=== PATIENT | female | born 1995 | race Asian ===

== ENCOUNTER → 2019-06-19 | Outpatient (CLI) | payer OTHER | LOC: M WHC 10:23 | PROVIDERS: ATTEND General Practice | DX: Z12.31 Encounter for screening mammogram for malignant neoplasm of breast (principal); Z80.3 Family history of malignant neoplasm of breast; Z53.9 Procedure and treatment not carried out, unspecified reason ==

== ENCOUNTER 2020-02-29 17:38 | Outpatient (CLI) | payer SELFPAY ==
[~2020-02-29] VITALS: Ht 154.9 cm; Wt 82.6 kg
[2020-02-29] MEDS ORDERED: PRENTAB9 PO (17:51)
[2020-02-29 18:00] VITALS: BP 133/76
--- NOTE | 2020-02-29 22:20 | IPNPDOC ---
Text Note Date of Service The patient was seen on 02/29/20. 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 LMP 07/25/2019 EDC 04/30/2020 at 31.3 weeks no vaginal bleeding no vaginal discharge. risk factors excessive weight gain. reviewed NST category 1 strip no contractions no decelerations moderate variability baseline normal. urine 1.020 pH 6 tr protein 50 glucose plan reviewed [facility] prom labor bleeding when to call provider . discharged undelivered appointment ft drum ob VS,Fishbone, I+O VS, [place], I+O Vital Signs Date Time Temp Pulse Resp B/P (MAP) Pulse Ox O2 Delivery O2 Flow Rate FiO2 02/29/20 18:00 98.3 110 133/76 (95) Ronald Miller MD Feb 29, 2020 22:19
== END 2020-02-29 18:58 | disposition home or self-care (01) ==
LOC: M LDO 17:38
PROVIDERS: ATTEND Obstetrics & Gynecology
DX: O36.8190 Decreased fetal movements, unspecified trimester, not applicable or unspecified (principal)
CPT/HCPCS: 59025; G0378; G0463

== ENCOUNTER 2020-05-07 14:35 | Inpatient (IN) | payer OTHER ==
[~2020-05-07] VITALS: Ht 154.9 cm; Wt 89.6 kg
[~2020-05-07 14:35] MED LIST: PRENTAB9 PO
[2020-05-07 15:10] VITALS: BP 128/72
--- NOTE | 2020-05-07 16:24 | HPEPDOC ---
Obstetrical History & Physical General Date of Admission May 07, 2020 at 14:35 History of Present Illness Ms. Zambrano is a 24yo at 41+0 with good 1T dating that presents for IOL for late term. She denied n/v/d, cp, sob, multani, visual changes, abd pain, f/c, vb, lof, decreased fm, regular painful contractions. Antepartum Course Pre- weight (lbs.): 144 Admission Weight (lbs.): 193 Change in Weight (lbs.): 49 Past Medical History Past Obstetrical History : Past Obstetrical History: [employer] SERVIC[employer] History: No pertinent history Past Medical History Surgical History: Denies/None Family History Significant Family History: No pertinent family hx Social History Marital Status: Family situation: Spouse/partner home Psychosocial History: No pertinent psych hx * Smoker: non-smoker Alcohol: Denies Drugs: denies Imunizations Tdap status: current Influenza Status: current Medications Scheduled No.137/Iron/Folic Acd ( Vitamin Tablet) 1 Each Tablet, 1 TAB PO DAILY Physical Examination Physical Examination GENERAL: Alert and oriented times three. BREAST: . ABDOMEN: Gravid and non-tender to touch. FETUS: Is vertex (VTX) by sterile vaginal examination (SVE), fetus is vertex (VTX) by ultrasound HEART RATE: Regular rate and rhythm. LUNGS: Clear to auscultation (CTA). EXTREMITIES: No edema. No clonus. Laboratory Data 24H LABS Laboratory Tests 2 05/07/20 14:48: Serology Scanned Report Hepatitis B Testing Urine Culture: No Growth Pertinent Laboratoy Data Blood Type: O+ RBC Antibody Screen: Negative HIV: Negative Hepatitis B: Negative Rapid Plasma Reagin: Nonreactive Rubella: Immune Varicella: Nonreactive Chlamydia/Gonorrhea: Negative Group B Streptococcus: Negative Quad Screen Test: Negative Cystic Fibrosis: Negative Glucose Tolerance Test: 104 Anatomy Ultrasound Placenta Location: Posterior Normal Anatomy: Yes Estimated Weight (grams): 3200 Steroid Therapy Steroid Therapy: No Vaginal Examination Dilation: 1cm Effacement: 50% Station: -3 Cervical Consistency: Firm Cervical Position: Posterior Presentation: Cephalic presentation (by US) Assessment Heart Rate (FHR): 140 Variability: Moderate Accelerations: Positive Decelerations: None Tocometer Contractions: Yes Frequency: irregular Multi-drug resistant Organism: No history of MDRO Assessment/Plan Assessment Ms. Zambrano is a 24yo at 41+0 with good 1T dating that presents for IOL for late term. CAT I tracing, reactive. Normal VS. SVE /-3, DLFB placed. APC 1. excessive weight gain 49# 2. allergy to shellfish but not iodine 3. COVID during , quarantine ended 02/04 5. lagging growth, previously meeting criteria for FGR by AC, most recent scan not meeting criteria but HC still at 3%ile on last scan at 37wks, seen by MFM who report no evidence of microcephaly and that variations in growth are likely a biologic variant 6. 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 Diet: regular until start of cytotec or pit then clears Group B Streptococcus (GBS) [negative]. Labs and intravenous (IV) per unit protocol. Counseled on Pitocin and induction of labor (IOL). Lactated Ringers (LR): prn Anticipate [normal spontaneous delivery ()]. C-S as appropriate. BIANKA OKLB DO May 07, 2020 16:24
[2020-05-07 16:42] LABS: HEMATOCRIT 39.1 % (36.0-47.0); HEMOGLOBIN 12.8 g/dl (12.0-15.5); MEAN CORPUSCULAR HEMOGLOBIN 28.9 pg (27.0-33.0); MEAN CORPUSCULAR HGB CONC 32.7 g/dl (32.0-36.5); MEAN CORPUSCULAR VOLUME 88.3 fl (80.0-96.0); PLATELET COUNT, AUTOMATED 305 10^3/uL (150-450); RED BLOOD COUNT 4.43 10^6/uL (4.00-5.40); WHITE BLOOD COUNT 13.2 10^3/uL (4.0-10.0)
[2020-05-07 16:49] VITALS: BP 117/64
[2020-05-07 17:59] VITALS: BP 127/66
[2020-05-07 18:49] VITALS: BP 135/67
--- NOTE | 2020-05-07 19:12 | IPNPDOC ---
Obstetrical Progress Note Date of Service May 07, 2020 Subjective STRIP NOTE. nursing reports no acute concerns. Objective Vital Signs Date Time Temp Pulse Resp B/P (MAP) Pulse Ox O2 Delivery O2 Flow Rate FiO2 05/07/20 18:49 92 16 135/67 (89) 05/07/20 17:59 98.6 05/07/20 16:49 97 Room Air Assessment Heart Rate (FHR): 130 Variability: Moderate Accelerations: Positive Heart Rate Tracing: Category I Tocometer Contractions: Yes Frequency: regular Assessment and Plan Additional Comments CAT I tracing, reactive. VS normal. Regular contractions with DLFB in place. Will reassess in 4-6h or sooner if clinically indicated. BIANKA KOLB DO May 07, 2020 19:12
[2020-05-07] MEDS ORDERED: miSOPROStol 25MCG 1/4 TABLET PO ONE (20:10)
[2020-05-07 20:43] VITALS: BP 104/57
[2020-05-07] MEDS ORDERED: BUTORPHANOL 2 MG/ML INJ (J0595) IV ONE (20:45)
[2020-05-07] MEDS ORDERED: PROMETHAZINE INJ 25 MG/ML VIAL (J2550) IV ONE (20:45)
--- NOTE | 2020-05-07 20:48 | IPNPDOC ---
Obstetrical Progress Note Date of Service May 07, 2020 Subjective Patient requesting pain medication. Objective Vital Signs Date Time Temp Pulse Resp B/P (MAP) Pulse Ox O2 Delivery O2 Flow Rate FiO2 05/07/20 18:49 92 16 135/67 (89) 05/07/20 17:59 98.6 05/07/20 16:49 97 Room Air Assessment Heart Rate (FHR): 135 Variability: Moderate Accelerations: Positive Decelerations: None Heart Rate Tracing: Category I Tocometer Contractions: Yes Frequency: irregular Assessment and Plan Additional Comments CAT I tracing, reactive. Irregular contractions, received cytotec 25mcg PO. Ordering stadol and phenergan for pain. VS normal. Will reassess in 4-6h or sooner if clinically indicated. BIANKA KOLB DO May 07, 2020 20:48
[2020-05-08] VITALS (48 sets, daily range): BP systolic 82–144; BP diastolic 43–82
[2020-05-08] MEDS ORDERED: miSOPROStol 25MCG 1/4 TABLET PV ONE (00:50)
[2020-05-08] MEDS ORDERED: miSOPROStol 25MCG 1/4 TABLET PO SCH (01:00)
[2020-05-08] MEDS ORDERED: BUTORPHANOL 2 MG/ML INJ (J0595) IV ONE (01:20)
[2020-05-08] MEDS ORDERED: miSOPROStol 25MCG 1/4 TABLET PO ONE (05:20)
[2020-05-08] MEDS ORDERED: OXYTOCIN DRIP 30 UNITS in IV 1 EA IV SCH ×2 (09:35→20:07)
--- NOTE | 2020-05-08 09:38 | IPNPDOC ---
Obstetrical Progress Note Date of Service May 08, 2020 Subjective 24 yo at 41w1d admitted for IOL for postdates . She has no complaints at this time and states that she feels intermittent cramps. She has supportive family at the bedside. Objective Vital Signs Date Time Temp Pulse Resp B/P (MAP) Pulse Ox O2 Delivery O2 Flow Rate FiO2 05/08/20 07:07 85 Manual Cuff/Auscultation 96 Room Air 05/08/20 07:05 97.8 20 Cook balloon removed intact Assessment Heart Rate (FHR): 145 Variability: Moderate Accelerations: Present Decelerations: None Tocometer Contractions: Yes Frequency: irregular, other (every 6-7 minutes) Sterile Vaginal Examination Dilation: 6 cm Effacement (%): 70% Station: -3 Cervical Consistency: Soft Cervical Position: Middle Postion/Presentation: Cephalic presentation Assessment and Plan Age: 24 : 1 Term: 0 Pre-term: 0 Abortions: 0 Livin EGA at Admission: 41 (+0) Weeks & Days 41w1d Status: Reassuring Group B Streptococcus: Negative Anticipate: Vaginal Delivery Additional Comments Will start pitocin at this time Coordinate epidural per patient request CLEMENTE HUI CNM May 08, 2020 09:38
[2020-05-08] MEDS: LR 1,000 ML IV SCH ×4 (09:47→20:40)
[2020-05-08] MEDS ORDERED: EPIDURAL/PCA KEYS XX PRN (12:05)
[2020-05-08] MEDS ORDERED: NALOXONE INJ 0.4MG/1ML VIAL (J2310 PER 1MG) IV PRN ×3 (12:05→22:10)
[2020-05-08] MEDS ORDERED: FENTANYL/ROPIVACAINE/NACL BAG 100 ML EPIDURAL SCH (12:05)
[2020-05-08] MEDS ORDERED: EPIDURAL COMMENT XX SCH (12:05)
[2020-05-08] MEDS ORDERED: ONDANSETRON 4MG/2ML VIAL IV PRN ×3 (12:05→22:10)
[2020-05-08] MEDS ORDERED: LACTATED RINGER'S 1000 ML IV PRN (12:05)
[2020-05-08] MEDS ORDERED: REFRIGERATOR IV KEYS XX PRN (12:05)
[2020-05-08] MEDS ORDERED: diphenhydrAMINE 50MG/ML VIAL (J1200) IV PRN ×2 (12:05→22:10)
--- NOTE | 2020-05-08 13:30 | IPNPDOC ---
Obstetrical Progress Note Date of Service May 08, 2020 Subjective 24 yo at 41w1d admitted for IOL for postdates . She is comfortable with her epidural and is resting comfortably. She has supportive family at the bedside. Objective Vital Signs Date Time Temp Pulse Resp B/P (MAP) Pulse Ox O2 Delivery O2 Flow Rate FiO2 05/08/20 12:40 90 20 97/52 (67) 05/08/20 12:27 99 Room Air 05/08/20 10:56 97.6 Pitocin at 6 mu/min AROM for thick meconium stained fluid Discussed placing IUPC and FSE with patient and spouse due to difficulty to change position and continue to monitor externally due to maternal habitus. They are agreeable to plan. IUPC and FSE placed without difficulty. Assessment Heart Rate (FHR): 135 Variability: Minimal Accelerations: Present Decelerations: Early Tocometer Contractions: Yes Frequency: other (every 4-5 minutes) Sterile Vaginal Examination Dilation: 6 cm Effacement (%): 70% Station: -3 Cervical Consistency: Soft Postion/Presentation: Cephalic presentation Assessment and Plan Age: 24 : 1 Term: 0 Pre-term: 0 Abortions: 0 Livin EGA at Admission: 41 (+0) Weeks & Days 41w1d Status: Reassuring Group B Streptococcus: Negative Anticipate: Vaginal Delivery CLEMENTE HUI CNM May 08, 2020 13:30
[2020-05-08] MEDS: ePHEDrine SULFATE 25 MG/5 ML(5MG/ML) SYRINGE IV PRN ×2 (13:45→13:49)
--- NOTE | 2020-05-08 16:22 | IPNPDOC ---
Text Note Date of Service The patient was seen on 05/08/20. NOTE I went to introduce myself to Beti and assess her labor progress. She's a 24 yo at 41+1 weeks gestation who was admitted yesterday for an IOL for late term . She received multiple doses of cytotec and had a sanchez bulb, which was removed at ~0930 this AM. She progressed on pitocin to 6cm dilated an underwent AROM at ~1315. She has an epidural in place. Beti reports feeling comfortable and has no pain. Chaperoned by RN Cervix: unchanged at /-2. FSE and IUPC in place. FHR tracing - Mostly Cat I with moderate variability, +accels, no decels. MVUs ~120-180 as measured by IUPC. No cervical change since at least 1315. Pitocin at 8 mU. Contractions regular. Will continue to titrate pitocin to adequacy. Will re examine in 2-4 hours or sooner as clinically indicated. All patient questions answered. Faheem VS,Zack, I+O VS, Zack, I+O Vital Signs Date Time Temp Pulse Resp B/P (MAP) Pulse Ox O2 Delivery O2 Flow Rate FiO2 05/08/20 15:56 112 100 Room Air 05/08/20 15:55 98.3 20 05/08/20 15:54 113/55 (74) I&O- Last 24 Hours up to 6 AM 05/08/20 05:59 Intake Total 1320 ml Balance 1320 ml RUY HOWELL DO May 08, 2020 16:22
[2020-05-08] MEDS ORDERED: ACETAMINOPHEN 500 MG TAB PO ONE (17:25)
[2020-05-08] MEDS: AMPICILLIN SOD 2 GM in D5W MINI-BAG PLUS 100 ML IV SCH ×2 (17:39→23:23)
--- NOTE | 2020-05-08 17:49 | IPNPDOC ---
Text Note Date of Service The patient was seen on 05/08/20. NOTE Notified that patient had a temp of 100.6, followed by 101 orally. 30 minutes later oral temperature was 100.7. There are periods of tachycardia on the tracing. Patient now diagnosed with presumed intraamniotic infection (chorioamnionitis). Will start gent 5mg/kg Q24H and 2gm Amp Q6H. Will also administer 1000mg PO tylenol. NICU notified. Faheem VS,Zack I+O VS, Zack I+O Vital Signs Date Time Temp Pulse Resp B/P (MAP) Pulse Ox O2 Delivery O2 Flow Rate FiO2 05/08/20 16:53 101.0 102 20 123/78 (93) 05/08/20 15:56 100 Room Air I&O- Last 24 Hours up to 6 AM 05/08/20 06:00 Intake Total 1320 ml Balance 1320 ml RUY HOWELL DO May 08, 2020 17:49
[2020-05-08] MEDS ORDERED: GENTAMICIN 450 MG in D5W 50 ML IV SCH (18:00)
[2020-05-08] MEDS ORDERED: LIDOCAINE 2% W/EPINEPHRINE 20ML VIAL **PRES FREE As Ordered ONE (18:54)
[2020-05-08] MEDS ORDERED: AZITHROMYCIN INJ 500 MG, VIAL MATE ADAPTER 1 EACH in NS 250 ML IV ONE (19:00)
[2020-05-08] MEDS ORDERED: BICITRA 30ML SOLN UDC PO ONE (19:00)
--- NOTE | 2020-05-08 19:04 | IPNPDOC ---
Text Note Date of Service The patient was seen on 05/08/20. NOTE There has been tachycardia for a little over an hour. Chaperoned by RN Cervix: unchanged at -2. Beti's cervix has been unchanged now for 6 hours, with intermittent adequate and inadequate MVUs while on pitocin. She has received gentamicin and ampicillin for an intra amniotic infection as well as tylenol. I recommended section for arrest of dilation and persistent Cat II tracing, remote from delivery. We discussed all risks of c sections to include, but not limited to, bleeding requiring blood transfusion, risk of infection, risk injury of injury to bowel, bladder, or other structures which could require additional surgery, risk of needing a hysterectomy as a lifesaving measure, risk of injury to baby, and even risk of and/or maternal . She verbalized understanding of these risks and elected to proceed. She understands her baby will spend time in the NICU due her intramniotic infection diagnosis. Consent forms signed. All patient and questions answered. Anesthesia and NICU notified. Will proceed to the OR urgently. Torres Mayen DO VS,Zack, I+O VS, Marianne, I+O Vital Signs Date Time Temp Pulse Resp B/P (MAP) Pulse Ox O2 Delivery O2 Flow Rate FiO2 05/08/20 18:25 100.2 112 20 111/53 (72) 97 Room Air I&O- Last 24 Hours up to 6 AM 05/08/20 06:00 Intake Total 1320 ml Balance 1320 ml TORRES MAYEN DO May 08, 2020 19:04
[2020-05-08] MEDS ORDERED: OXYTOCIN 30 UNITS IN 0.9% NaCl 500ML IV BAG (J2590) As Ordered ONE (19:08)
[2020-05-08] MEDS ORDERED: MORPHINE PRES-FREE INJ 10 MG/10 ML VIAL (J2274) As Ordered ONE (19:17)
[2020-05-08] MEDS ORDERED: dexameTHASONE 4 MG/ML 1ML VIAL (J1100 PER 1MG) As Ordered ONE (19:22)
[2020-05-08] MEDS ORDERED: ONDANSETRON 4MG/2ML VIAL As Ordered ONE (19:22)
[2020-05-08] MEDS ORDERED: KETOROLAC 60MG 2ML VIAL As Ordered ONE (19:29)
[2020-05-08] MEDS ORDERED: METHYLERGONOVINE MALEATE 0.2 MG/ML VIAL (J2210) IM STA (19:38)
[2020-05-08] MEDS ORDERED: PHENYLephrine 500MCG 5ML (100MCG/ML) SYRINGE As Ordered ONE (19:42)
[2020-05-08] MEDS ORDERED: OXYTOCIN INJ 10 UNITS/ML VIAL (J2590) As Ordered ONE (19:46)
[2020-05-08 19:57] LABS: CORD GAS ABE A -2.8; CORD GAS O2 SAT A 43.9 %; CORD GAS PCO2 A 55.5 mmHg; CORD GAS PH A 7.271 UNITS; CORD GAS PO2 A 21.5 mmHg; CORD GAS TCO2 A 26.7 MEQ/L
[2020-05-08 20:00] LABS: CORD GAS ABE V -2.6; CORD GAS O2 SAT V 79.6 %; CORD GAS PCO2 V 42.8 mmHg; CORD GAS PH V 7.349 UNITS; CORD GAS PO2 V 38.9 mmHg; CORD GAS SBC V 21.9 MEQ/L; CORD GAS TCO2 V 24.4 MEQ/L
[2020-05-08] MEDS ORDERED: SIMETHICONE 80MG CHEW TAB PO PRN (20:10)
[2020-05-08] MEDS ORDERED: MEASLES,MUMPS,RUBELLA VACCINE INJ (MMR-II) (90707) SC SCH (20:10)
[2020-05-08] MEDS ORDERED: RHOGAM 300 MCG (1500 IU) INJ (J2790) IM SCH (20:10)
[2020-05-08] MEDS ORDERED: PERCOCET 5MG/325MG TAB PO PRN ×2 (20:10→20:25)
[2020-05-08] MEDS ORDERED: METOCLOPRAMIDE INJ 10MG/2ML VIAL (J2765 PER 1) IV PRN ×3 (20:10→22:10)
[2020-05-08] MEDS ORDERED: ONDANSETRON 4 MG ORAL DISINTEGRATING TAB PO PRN (20:10)
[2020-05-08] MEDS ORDERED: fentaNYL 100 MCG/2 ML INJECTION (J3010) IV PRN (20:25)
[2020-05-08] MEDS ORDERED: LR 1,000 ML IV SCH (20:25)
[2020-05-08] MEDS: DOCUSATE SODIUM 100MG CAPSULE PO PRN (22:07)
[2020-05-08] MEDS: PERCOCET 5MG/325MG TAB PO PRN (22:07)
[2020-05-08] MEDS ORDERED: NALBUPHINE HCL 10 MG/ML AMP (J2300) IV PRN (22:10)
[2020-05-09] VITALS (8 sets, daily range): BP systolic 101–141; BP diastolic 49–75
[2020-05-09] MEDS: KETOROLAC 30 MG/ML 1ML VIAL IV SCH ×3 (01:58→14:26)
[2020-05-09] MEDS: LR 1,000 ML IV SCH (03:46)
[2020-05-09] MEDS: AMPICILLIN SOD 2 GM in D5W MINI-BAG PLUS 100 ML IV SCH ×4 (04:54→23:14)
[2020-05-09 07:31] LABS: HEMATOCRIT 30.5 % (36.0-47.0); MEAN CORPUSCULAR HEMOGLOBIN 29.4 pg (27.0-33.0); MEAN CORPUSCULAR HGB CONC 33.1 g/dl (32.0-36.5); MEAN CORPUSCULAR VOLUME 88.9 fl (80.0-96.0); PLATELET COUNT, AUTOMATED 235 10^3/uL (150-450); RED BLOOD COUNT 3.43 10^6/uL (4.00-5.40); WHITE BLOOD COUNT 18.2 10^3/uL (4.0-10.0)
--- NOTE | 2020-05-09 07:42 | IPNPDOC ---
Progress Note Date of Service: May 09, 2020 Progress Note Ms. Zambrano is a 24 yo G1 now P1 who is PPD#1 s/p uncomplicated PLTCS yesterday evening for arrest of dilation and persistent Cat II tracing. She is currently recovering on the scott. No acute events overnight. She continues to receive ampicillin and gentamicin. in the NICU for monitoring due to intrapartum intra amniotic infection. Beti reports feeling this morning and just has mild abdominal soreness. She is ambulating and tolerating a regular diet without issues. She denies any fevers/chills, n/v, or pain not controlled by current pain regimen. Vitals - VSS, afebrile, normotensive, non tachycardic General - sitting up in bed, AAOX3, pleasant and conversant, NAD Abdomen - Fundus firm at U-1. No fundal tenderness. Incision covered with optifoam dressing. Dry and intact with minimal strikethrough. Appropriate tenderness to palpation. Extremities - No edema - sanchez bag at bedside draining clear, yellow urine Labs: Pre op H/H ~ ---> pending post op H/H this AM Beti is doing well and is making an appropriate / postoperative recovery. Will encourage ambulation today, remove sanchez catheter, and monitor for DTV. Continue IV amp and gent for full 24 hours post delivery. Encourage IS use. Continue routine post op care. Anticipate DC home on Tuesday if baby meeting criteria as well. All patient questions answered. Faheem VS, I&O, 24H, Fishbone Vital Signs/I&O Vital Signs Date Time Temp Pulse Resp B/P (MAP) Pulse Ox O2 Delivery O2 Flow Rate FiO2 05/09/20 06:00 96.5 94 18 115/58 (77) 97 Room Air I&O- Last 24 Hours up to 6 AM 05/09/20 06:00 Intake Total 5595.3 ml Output Total 5375 ml Balance 220.3 ml Laboratory Data 24H LABS Laboratory Tests 2 05/08/20 19:36: Cord Arterial Blood pH 7.271, Cord Arterial Blood PCO2 55.5, Cord Arterial Blood PO2 21.5, Cord Arterial Blood HCO3 25.0, Cord Arterial Blood Total CO2 26.7, Cord Arterial Blood Base Excess -2.8, Cord Arterial Base Excess (Standard 21.0, Cord Arterial Bld Oxygen Saturation 43.9, Cord Venous Blood pH 7.349, Cord Venous Blood PCO2 42.8, Cord Venous Blood PO2 38.9, Cord Venous Blood HCO3 23.0, Cord Venous Blood Total CO2 24.4, Cord Venous Base Excess (Actual) -2.6, Cord Venous Base Excess (Standard) 21.9, Cord Venous Blood Oxygen Saturation 79.6 CBC/BMP RUY HOWELL DO May 09, 2020 07:42
[2020-05-09 07:43] LABS: HEMOGLOBIN 10.1 g/dl (12.0-15.5)
[2020-05-09] MEDS: PRENATAL VITAMINS CHEWABLE TABLET PO SCH (08:10)
[2020-05-09] MEDS: CLINDAMYCIN 900 MG in IV 1 EA IV SCH ×2 (11:18→22:00)
--- NOTE | 2020-05-09 13:12 | RO ---
OPERATIVE NOTE DATE OF OPERATION: 05/07/2020 PREOPERATIVE DIAGNOSIS: 1. Arrest of dilation. 2. Persistent Category II tracing remote from delivery. 3. Obesity. 4. Intra-amniotic infection. POSTOPERATIVE DIAGNOSIS: 1. Arrest of dilation. 2. Persistent Category II tracing remote from delivery. 3. Obesity. 4. Intra-amniotic infection. PROCEDURE: Primary low transverse section. SURGEON: Torres Mayen DO [employer] OFFICER: Chepe Vega MD, whose assistance with exposure, retraction, and visualization was essential to completion of the case. ANESTHESIA: Epidural. IV FLUIDS: 1 liter. EBL: 700 mL. URINE OUTPUT: 300 mL via Vela catheter. ANTIBIOTICS: The patient was receiving Gentamicin and Ampicillin for chorioamnionitis. Before case start she got 500 mg of Azithromycin as well. Clindamycin was added after the case. COMPLICATIONS: None. OPERATIVE FINDINGS: Viable female infant found and delivered in cephalic ROT presentation. Footling cord noted with delivery. Normal-appearing placenta, normal-appearing uterus and Fallopian tubes bilaterally. Apgars were 8 and 9. weight was 2988 gm or 6 pounds 9 ounces. Cord gasses were arterial 7.27 pH with a -2.8 base excess and venous was 7.34 pH with a base excess of -2.6. DESCRIPTION OF PROCEDURE: The risks, benefits, and alternatives of the procedure were reviewed with the patient and informed consent was obtained. The patient was taken to the operating room where epidural anesthesia was found to be adequate. She was then prepped and draped in the usual sterile fashion in the dorsal supine position with a leftward tilt. A surgical time-out was then performed and the patient's identity and the planned procedure were verified with the operative team. A Pfannenstiel incision was then made with a scalpel and carried through to the underlying layer of fascia. The fascia was incised in the midline, and the incision was extended laterally with Graham scissors. The superior aspect of the fascial incision was grasped with Joceline clamps, elevated, and the underlying rectus muscles were dissected off bluntly. Attention was then turned to the inferior aspect of this incision which in a similar fashion was grasped, tented up with Joceline clamps, and the rectus muscles were dissected off by blunt dissection and with Graham scissors. The rectus muscles were then at the midline. The peritoneum was identified, tented up, and entered digitally. The peritoneal incision was then extended horizontally and superiorly with good visualization of the bladder. A Mobius self-containing retractor was then introduced into the abdomen. The vesicouterine peritoneum was then identified and nicked with a scalpel. A bladder flap was then created digitally. Next, the lower uterine segment was incised in a transverse fashion with the scalpel. Meconium-stained fluid was noted upon entry into the uterus. The uterine incision was then extended manually in a superolateral fashion. The was found in cephalic presentation. The baby was then delivered without difficulty through the hysterotomy. The cord was then doubly clamped and cut. The infant was then handed off to the awaiting pediatricians. Cord gasses were obtained. The placenta was then removed spontaneously with gently traction on the cord. The uterus was then cleared of all clots and debris. The uterine incision was then repaired with 0 Monocryl suture in a running-locked fashion. A second layer of 0 Monocryl was then used to imbricate the hysterotomy in a vertical fashion. Inspection revealed excellent hemostasis. The pericolic gutters were then cleared of all clots and debris. Inspection of the hysterotomy again revealed hemostasis. The Mobius self-containing retractor was then removed from the abdomen. The hysterotomy was again inspected and was noted to be hemostatic. The patient's peritoneum was then reapproximated with 3-0 Vicryl suture in a running fashion. The fascia was then closed with 0 Vicryl suture in a running fashion. The subcutaneous fat was then closed with 3-0 Vicryl suture in a running fashion. The skin was then closed with 4-0 Monocryl suture in a subcuticular fashion. The incision was then dressed with an Optifoam dressing. At the completion of the case, a bimanual exam was performed and the uterus was initially boggy. Methergine, 0.2 mg IM, was then administered with improvement in uterine tone. There was then minimal vaginal bleeding. The patient tolerated the procedure well. Sponge, instrument, and needle counts were correct times three. The patient was taken to the recovery room in stable condition. GEORGES
[2020-05-09] MEDS ORDERED: GENTAMICIN 450 MG in D5W 100 ML IV SCH (18:00)
[2020-05-09] MEDS: DOCUSATE SODIUM 100MG CAPSULE PO PRN (22:28)
[2020-05-09] MEDS: PERCOCET 5MG/325MG TAB PO PRN (22:29)
[2020-05-09] MEDS: IBUPROFEN 800 MG TAB PO SCH (22:29)
[2020-05-10 02:00] VITALS: BP 118/55
[2020-05-10] MEDS: CLINDAMYCIN 900 MG in IV 1 EA IV SCH (02:15)
[2020-05-10] MEDS: PERCOCET 5MG/325MG TAB PO PRN ×2 (04:32→10:23)
[2020-05-10] MEDS: AMPICILLIN SOD 2 GM in D5W MINI-BAG PLUS 100 ML IV SCH (04:32)
[2020-05-10] MEDS: IBUPROFEN 800 MG TAB PO SCH (05:40)
[2020-05-10 06:00] VITALS: BP 105/55
[2020-05-10] MEDS ORDERED: DOK1CAP7 PO (06:44)
[2020-05-10] MEDS ORDERED: IBUP80TA PO (06:44)
[2020-05-10] MEDS ORDERED: PERCOCET PO (06:44)
[2020-05-10] MEDS: PRENATAL VITAMINS CHEWABLE TABLET PO SCH (08:27)
--- NOTE | 2020-05-10 11:17 | DSES ---
DISCHARGE SUMMARY DATE OF ADMISSION: 05/07/2020 DATE OF DISCHARGE: 05/10/2020 BRIEF HISTORY: A 24-year-old, 1, now para 1, admitted at 41 weeks for induction of labor. She had a primary section because of arrest of dilation and category II strip and chorioamnionitis, delivered a live female , weighing 6 pounds 9 ounces, 2988 grams, Apgars of 8 and 9 at one and five minutes respectively. Arterial pH 7.27, base excess -2.8. Venous pH 7.34, base excess -2.6. On her second day, we discussed phlebitis, cystitis, mastitis, endometritis, cellulitis, diet, exercise, pain management, perineal, breast and wound care. She has been afebrile throughout, has been on antibiotics for 24 hours, asymptomatic. Her admitting hemoglobin 12.8, hematocrit 39.1 and platelets 305,000. Discharge hemoglobin 10.1, hematocrit 30.5 and platelets 235,000. PHYSICAL EXAMINATION ON DISCHARGE: Blood pressure is 105/53, respirations 16, pulse 75, temperature 98.2. The rest of the examination is unremarkable. Normocephalic, atraumatic. Neck full range of motion. Pupils equal and reactive to light. Distal pulses are symmetric. No evidence of DVT, PE or superficial phlebitis. Chest is clear bilaterally to bases, no wheezes or rhonchi. No CVA tenderness. Abdomen is soft, four quadrant bowel sounds are noted. Incision is clean and dry. The Optifoam is clean and dry. No rashes, lesions or pruritis. No arthralgia or myalgia. No complaint of joint pain. No complaint of cough, wheeze, shortness of breath or dyspnea on exertion. No nausea, vomiting, diarrhea or constipation. No urgency or frequency. Presently , doing well. Passing gas. Voiding normally. Pain is under control. 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 She has a two week incision check with [facility], and six week checkup. All questions were answered, 20 minute discussion. Patient was discharged improved.
== END 2020-05-10 10:15 | disposition home or self-care (01) | DRG 771 ==
LOC: M LDI 14:35 → M OBS 05-08 22:05
PROVIDERS: ADMIT Obstetrics & Gynecology; ATTEND Obstetrics & Gynecology
PROC: 10D00Z1 Extraction of Products of Conception, Low, Open Approach (ICD-10-PCS; principal; 2020-05-07)
PROC: 3E0P7GC Introduction of Other Therapeutic Substance into Female Reproductive, Via Natural or Artificial Opening (ICD-10-PCS; 2020-05-07)
PROC: 10907ZC Drainage of Amniotic Fluid, Therapeutic from Products of Conception, Via Natural or Artificial Opening (ICD-10-PCS; 2020-05-07)
DX: O48.0 Post-term pregnancy (principal); O41.1230 Chorioamnionitis, third trimester, not applicable or unspecified; Z37.0 Single live birth; Z3A.41 41 weeks gestation of pregnancy; O99.214 Obesity complicating childbirth; E66.9 Obesity, unspecified; O77.0 Labor and delivery complicated by meconium in amniotic fluid; O62.0 Primary inadequate contractions; O76 Abnormality in fetal heart rate and rhythm complicating labor and delivery; O69.82X0 Labor and delivery complicated by other cord entanglement, without compression, not applicable or unspecified; Z86.16 Personal history of COVID-19

== ENCOUNTER → 2021-01-04 | Outpatient (REF) | payer OTHER ==
[~2021-01-04] MED LIST changes: +DOK1CAP4 PO; +IBUP80TA PO; +PERCOCET PO
== END ==
LOC: M LAB REF 17:31
PROVIDERS: ATTEND Physician Assistant
DX: J02.9 Acute pharyngitis, unspecified (principal)

== ENCOUNTER 2022-04-13 20:48 | Outpatient (CLI) | payer OTHER ==
[~2022-04-13] VITALS: Ht 154.9 cm; Wt 87.3 kg
[~2022-04-13 20:48] MED LIST changes: +DICL500C PO; +LEVS0.123 PO
[2022-04-13 21:03] VITALS: BP 127/58
[2022-04-13 21:34] VITALS: BP 117/56
== END 2022-04-13 21:40 | disposition home or self-care (01) ==
LOC: M LDO 20:48
PROVIDERS: ATTEND Obstetrics & Gynecology
DX: O36.8130 Decreased fetal movements, third trimester, not applicable or unspecified (principal); Z3A.31 31 weeks gestation of pregnancy; Z91.013 Allergy to seafood; Z79.899 Other long term (current) drug therapy
CPT/HCPCS: 59025; 76815; G0463

== ENCOUNTER 2022-06-03 21:06 | Inpatient (IN) | payer OTHER ==
[~2022-06-03] VITALS: Ht 154.9 cm; Wt 92.8 kg
[~2022-06-03 21:06] MED LIST changes: +ACET-683 PO
[2022-06-03 21:25] VITALS: BP 135/76
[2022-06-03] MEDS ORDERED: ceFAZolin SOD 2 GM in IV 1 EA IV ONE (21:50)
[2022-06-03] MEDS ORDERED: BICITRA 30ML SOLN UDC PO ONE (21:50)
[2022-06-03] MEDS ORDERED: OXYTOCIN DRIP 30 UNITS in IV 1 EA IV PRN ×4 (21:50)
[2022-06-03] MEDS ORDERED: METHYLERGONOVINE MALEATE 0.2MG/ML 1ML VIAL IM PRN (21:50)
[2022-06-03] MEDS ORDERED: TRANEXAMIC ACID INJection 1,000 MG in NS 100 ML IV PRN (21:50)
[2022-06-03] MEDS ORDERED: CARBOPROST TROMETHAMINE 250 MCG/ML AMP IM PRN (21:50)
[2022-06-03] MEDS ORDERED: BUPIVACAINE HCL 0.25% 10ML VIAL SC ONE (21:50)
[2022-06-03 22:28] LABS: HEMATOCRIT 36.7 % (36.0-47.0); HEMOGLOBIN 11.9 g/dl (12.0-15.5); MEAN CORPUSCULAR HEMOGLOBIN 27.1 pg (27.0-33.0); MEAN CORPUSCULAR HGB CONC 32.4 g/dl (32.0-36.5); MEAN CORPUSCULAR VOLUME 83.6 fl (80.0-96.0); PLATELET COUNT, AUTOMATED 286 10^3/uL (150-450); RED BLOOD COUNT 4.39 10^6/uL (4.00-5.40)
[2022-06-03] MEDS ORDERED: HOME MED LIST COMPLETE! XX SCH (23:25)
[2022-06-04] VITALS (8 sets, daily range): BP systolic 111–132; BP diastolic 61–77
[2022-06-04] MEDS: LR 1,000 ML IV SCH ×3 (06:51→14:08)
[2022-06-04] MEDS ORDERED: MORPHINE PRES-FREE INJ 10 MG/10 ML VIAL As Ordered ONE (07:31)
[2022-06-04] MEDS ORDERED: OXYTOCIN 30UNITS IN 0.9% NaCl 500ML IV BAG As Ordered ONE ×2 (07:32→09:26)
[2022-06-04] MEDS ORDERED: ONDANSETRON 4MG 2ML VIAL As Ordered ONE (07:35)
[2022-06-04] MEDS ORDERED: ACETAMINOPHEN 1000MG 100ML IV BAG As Ordered ONE (08:12)
[2022-06-04] MEDS ORDERED: ePHEDrine SULFATE 25 MG/5 ML(5MG/ML) SYRINGE As Ordered ONE (08:14)
[2022-06-04] MEDS ORDERED: PHENYLephrine 500MCG 5ML (100MCG/ML) SYRINGE As Ordered ONE (08:41)
[2022-06-04] MEDS ORDERED: KETOROLAC 60MG 2ML VIAL As Ordered ONE (08:41)
[2022-06-04] MEDS: DOCUSATE SODIUM 100MG CAPSULE PO SCH ×2 (09:00→21:35)
[2022-06-04] MEDS: PRENATAL VITAMINS CHEWABLE TABLET PO SCH (09:00)
[2022-06-04] MEDS ORDERED: MORPHINE 2 MG/ML 1ML VIAL IV PRN (09:35)
[2022-06-04] MEDS ORDERED: METHYLERGONOVINE MALEATE 0.2 MG TAB PO PRN (09:35)
[2022-06-04] MEDS ORDERED: OXYTOCIN DRIP 30 UNITS in IV 1 EA IV SCH (09:35)
[2022-06-04] MEDS ORDERED: oxyCODONE 5MG TAB PO PRN ×2 (09:35→09:50)
[2022-06-04] MEDS ORDERED: RHOGAM 300MCG (1500IU) INJ IM SCH (09:35)
[2022-06-04] MEDS ORDERED: ONDANSETRON 4MG 2ML VIAL IV PRN ×2 (09:35→09:50)
[2022-06-04] MEDS ORDERED: METOCLOPRAMIDE INJ 10MG/2ML VIAL IV PRN (09:50)
[2022-06-04] MEDS ORDERED: MEPERIDINE 25 MG/ML 1ML VIAL IV PRN (09:50)
[2022-06-04] MEDS ORDERED: **NOTE PATIENT COMMENT** MISC XX SCH (09:50)
[2022-06-04] MEDS ORDERED: HYDROMORPHONE HCL 0.5 MG/ 0.5 ML SYRINGE IV PRN (09:50)
[2022-06-04] MEDS ORDERED: NALOXONE INJ 0.4MG/1ML VIAL IV PRN ×2 (09:50)
[2022-06-04] MEDS: SLF 3 ML SYR IV SCH ×2 (09:50→17:50)
[2022-06-04] MEDS ORDERED: fentaNYL 100 MCG/2 ML INJECTION IV PRN (09:50)
[2022-06-04] MEDS ORDERED: diphenhydrAMINE 50MG/ML VIAL IV PRN (09:50)
[2022-06-04] MEDS ORDERED: oxyCODONE 5MG TAB As Ordered ONE (10:23)
[2022-06-04] MEDS: KETOROLAC 30 MG/ML 1ML VIAL IV SCH ×2 (14:56→21:35)
[2022-06-04] MEDS: ENOXAPARIN 40MG/0.4ML SYRINGE (J1650 PER 10MG) SC SCH (15:00)
[2022-06-05 02:00] VITALS: BP 102/56
[2022-06-05] MEDS: KETOROLAC 30 MG/ML 1ML VIAL IV SCH (02:53)
[2022-06-05] MEDS: SLF 3 ML SYR IV SCH (02:53)
[2022-06-05 06:00] VITALS: BP 112/63
[2022-06-05 08:19] LABS: HEMATOCRIT 27.4 % (36.0-47.0); MEAN CORPUSCULAR HEMOGLOBIN 27.1 pg (27.0-33.0); MEAN CORPUSCULAR HGB CONC 32.1 g/dl (32.0-36.5); MEAN CORPUSCULAR VOLUME 84.3 fl (80.0-96.0); PLATELET COUNT, AUTOMATED 230 10^3/uL (150-450); RED BLOOD COUNT 3.25 10^6/uL (4.00-5.40); WHITE BLOOD COUNT 12.4 10^3/uL (4.0-10.0)
[2022-06-05 08:22] LABS: HEMOGLOBIN 8.8 g/dl (12.0-15.5)
[2022-06-05] MEDS: PRENATAL VITAMINS CHEWABLE TABLET PO SCH (08:43)
[2022-06-05] MEDS: DOCUSATE SODIUM 100MG CAPSULE PO SCH ×2 (08:43→20:14)
[2022-06-05] MEDS: oxyCODONE 5MG TAB PO PRN ×3 (08:49→20:15)
[2022-06-05 10:05] VITALS: BP 104/60
[2022-06-05] MEDS: SIMETHICONE 80MG CHEW TAB PO PRN ×2 (10:30→20:14)
[2022-06-05] MEDS: IBUPROFEN 800 MG TAB PO SCH ×2 (10:50→18:42)
[2022-06-05 14:00] VITALS: BP 111/54
[2022-06-05] MEDS: ENOXAPARIN 40MG/0.4ML SYRINGE (J1650 PER 10MG) SC SCH (16:17)
[2022-06-05] MEDS: ACETAMINOPHEN 500 MG TAB PO PRN (16:24)
[2022-06-05 18:00] VITALS: BP 119/70
[2022-06-05 22:00] VITALS: BP 119/65
[2022-06-06] MEDS: ACETAMINOPHEN 500 MG TAB PO PRN ×2 (00:58→08:10)
[2022-06-06 02:20] VITALS: BP 106/60
[2022-06-06] MEDS: IBUPROFEN 800 MG TAB PO SCH (02:40)
[2022-06-06 06:00] VITALS: BP 106/57
[2022-06-06] MEDS: DOCUSATE SODIUM 100MG CAPSULE PO SCH (08:09)
[2022-06-06] MEDS ORDERED: MEASLES,MUMPS,RUBELLA VACCINE INJ (MMR-II) SC.IMMUN ONE (09:00)
[2022-06-06] MEDS: oxyCODONE 5MG TAB PO PRN (09:06)
[2022-06-06] MEDS: PRENATAL VITAMINS CHEWABLE TABLET PO SCH (09:07)
== END 2022-06-06 12:33 | disposition home or self-care (01) | DRG 773 ==
LOC: M LDO 21:06 → M LDI 21:47 → M OBS 06-04 10:50
PROVIDERS: ADMIT Obstetrics & Gynecology; ATTEND Obstetrics & Gynecology
PROC: 10D00Z1 Extraction of Products of Conception, Low, Open Approach (ICD-10-PCS; principal; 2022-06-04 07:30)
DX: O34.211 Maternal care for low transverse scar from previous cesarean delivery (principal); Z3A.38 38 weeks gestation of pregnancy; Z91.013 Allergy to seafood; Z37.0 Single live birth

== ENCOUNTER → 2023-07-30 | Outpatient (CLI) | payer OTHER | LOC: M RAD 09:03 | PROVIDERS: ATTEND Physician Assistant | DX: R07.9 Chest pain, unspecified (principal); M94.0 Chondrocostal junction syndrome [Tietze] ==

== ENCOUNTER → 2023-10-27 | Outpatient (CLI) | payer OTHER | LOC: M RAD 17:28 | PROVIDERS: ATTEND Physician Assistant Medical | DX: M25.511 Pain in right shoulder (principal) ==

== ENCOUNTER 2024-01-14 17:35 | Emergency (ER) | payer OTHER ==
[~2024-01-14] VITALS: Ht 154.9 cm; Wt 81.8 kg
[2024-01-14 17:45] VITALS: TEMP 98.2
[2024-01-14] MEDS: methylPREDNISolone 125MG 2ML VIAL IV ONE (18:11)
[2024-01-14] MEDS: FAMOTIDINE 20MG/2ML VIAL IVP ONE (18:11)
[2024-01-14 18:13] LABS: HEMATOCRIT 45.5 % (36.0-47.0); HEMOGLOBIN 14.4 g/dl (12.0-15.5); MEAN CORPUSCULAR HEMOGLOBIN 27.5 pg (27.0-33.0); MEAN CORPUSCULAR HGB CONC 31.6 g/dl (32.0-36.5); PLATELET COUNT, AUTOMATED 425 10^3/uL (150-450); RED BLOOD COUNT 5.23 10^6/uL (4.00-5.40)
[2024-01-14 18:39] LABS: BLOOD UREA NITROGEN 17 MG/DL (9-23); CALCIUM LEVEL 9.9 MG/DL (8.5-10.1); CARBON DIOXIDE LEVEL 26 MMOL/L (20-31); CHLORIDE LEVEL 104 MMOL/L (98-107); CK-MB VALUE MASS < 1.0 NG/ML (<3.6); CPK CREATINE PHOSPHOKINASE 115 U/L (34-145); CREATININE FOR GFR 0.73 MG/DL (0.55-1.30); GLOMERULAR FILTRATION RATE > 60.0 (>60); GLUCOSE, FASTING 98 MG/DL (60-100); MB/CK RELATIVE INDEX 0.86 (< OR =4); POTASSIUM SERUM 3.7 MMOL/L (3.5-5.1); SODIUM LEVEL 139 MMOL/L (136-145)
[2024-01-14 18:46] LABS: ATYPICAL LYMPH 5 % (0-5); EOSINOPHILS 2 % (0-3); LYMPHOCYTES 31 % (16-44); MONOCYTES 7 % (0-5); NEUTROPHILS 55 % (28-66); PLATELET ESTIMATE NORMAL (NORMAL)
[2024-01-14 18:47] LABS: ANISOCYTOSIS 1+
[2024-01-14 18:56] LABS: HCG, SERUM QUALITATIVE NEGATIVE (NEGATIVE)
[2024-01-14] MEDS ORDERED: ISOVUE-370 76% 100ML VIAL As Ordered ONE (19:03)
[2024-01-14 20:05] LABS: CK-MB VALUE MASS < 1.0 NG/ML (<3.6)
[2024-01-14 20:07] LABS: CPK CREATINE PHOSPHOKINASE 112 U/L (34-145); MB/CK RELATIVE INDEX 0.89 (< OR =4)
[2024-01-14] MEDS: ACETAMINOPHEN 325 MG TAB PO ONE (21:53)
[2024-01-14 22:04] LABS: CK-MB VALUE MASS < 1.0 NG/ML (<3.6)
[2024-01-14 22:05] LABS: CPK CREATINE PHOSPHOKINASE 95 U/L (34-145); MB/CK RELATIVE INDEX 1.05 (< OR =4)
[2024-01-14 22:30] VITALS: BP 124/78; O2SAT 97
== END 2024-01-14 22:37 | disposition home or self-care (01) ==
LOC: EDBD 17:35 → M ED 17:35
DX: R07.9 Chest pain, unspecified (principal); T78.40XA Allergy, unspecified, initial encounter; Z91.013 Allergy to seafood; R00.0 Tachycardia, unspecified; Z79.810 Long term (current) use of selective estrogen receptor modulators (SERMs)
CPT/HCPCS: 71275; 80048; 82550; 82553; 84484; 84703; 85025; 85379; 93005; 93041; 94760; 96374; 99285; J2919; Q9967; S0028